=== PATIENT | male | born 1960 | race Caucasian/White ===

== ENCOUNTER 2021-10-11 22:42 | Emergency (ER) | payer BC ==
[2021-10-11] MEDS ORDERED: Boostrix 0.5 ML (Tdap) VIAL ONE (23:51)
== END 2021-10-12 00:55 | disposition home or self-care (01) ==
LOC: BURERS 22:42
DX: T63.061A Toxic effect of venom of other North and South American snake, accidental (unintentional), initial encounter (principal); Z23 Encounter for immunization
CPT/HCPCS: 90471; 90715